=== PATIENT | female | born 1985 | race Caucasian/White ===

== ENCOUNTER 2017-02-23 16:51 | Emergency (ER) | payer BC ==
[~2017-02-23] VITALS: Ht 160 cm; Wt 77.1 kg
--- NOTE | 2017-02-23 18:41 | NUR ---
DR LANGLEY AT THE BEDSIDE FOR EVAL AND EXAM.
--- NOTE | 2017-02-23 18:52 | NUR ---
Patient discharged to home in stable conditon. Written and verbal after care instructions given. Patient verbalizes understanding of instructions.
[2017-02-23 18:53] VITALS: BP 113/68
== END 2017-02-23 18:54 | disposition home or self-care (01) ==
LOC: ER 16:52
DX: Z00.00 Encounter for general adult medical examination without abnormal findings (principal); Z87.2 Personal history of diseases of the skin and subcutaneous tissue; Z88.0 Allergy status to penicillin
CPT/HCPCS: 99281; A4663